=== PATIENT | female | born 1945 | race Caucasian/White ===

== ENCOUNTER → 2016-10-23 | Outpatient (CLI) | payer MEDICARE, OTHER | LOC: KOH-I 11:19 | DX: M25.561 Pain in right knee (principal); M25.461 Effusion, right knee; M25.861 Other specified joint disorders, right knee | CPT/HCPCS: 73560 ==

== ENCOUNTER → 2020-09-22 | Outpatient (CLI) | payer MEDICARE, OTHER ==
[~2020-09-22] MED LIST: ADVIL200 MG PO; AMLODIPINE BESYL5 MG PO; CO Q-10100 MG PO; COREG CR10 MG PO; ELIQUIS 2.5 MG2.5 MG PO; FISH OIL 1,0001 EAC1 PO; FLAXSEED OIL1000 M1 PO; GLIPIZIDE10 MG PO; LEVEMIR100 UNIT/1 SQ; LIVALO2 MG PO; MAGNESIUM250 M1 PO; MELOXICAM15 MG PO; METFORMIN HCL1000 MG PO; PERCOCET 10-321 EACH PO; SYNTHROID150 MCG PO; SYNTHROID175 MCG PO; VICTOZA SQ; VITAMIN B-125000 MC1 PO; VITAMIN D35000 UNIT PO
== END ==
LOC: ECHO 09:07
DX: R01.1 Cardiac murmur, unspecified (principal); I11.9 Hypertensive heart disease without heart failure; Z11.59 Encounter for screening for other viral diseases; I08.3 Combined rheumatic disorders of mitral, aortic and tricuspid valves; I27.20 Pulmonary hypertension, unspecified
CPT/HCPCS: ECHO; 93306

== ENCOUNTER → 2020-11-11 | Outpatient (CLI) | payer MEDICARE, OTHER | LOC: EXRD 10:48 | DX: E89.0 Postprocedural hypothyroidism (principal) | CPT/HCPCS: 76536 ==

== ENCOUNTER → 2020-12-08 | Outpatient (CLI) | payer MEDICARE, OTHER | LOC: MAMO 10-07 14:30 | DX: Z12.31 Encounter for screening mammogram for malignant neoplasm of breast (principal) | CPT/HCPCS: 77063; 77067 ==